=== PATIENT | female | born 1935 | race Caucasian/White ===

== ENCOUNTER 2017-01-18 18:36 | Inpatient (IN) | payer MEDICARE, BC ==
[2017-01-18] MEDS ORDERED: SODIUM CHLORIDE 0.9% 1,000 ML IV STA (18:38)
--- NOTE | 2017-01-18 18:42 | ED ---
SOB HPI - General Stated Complaint: TITA Time Seen by Provider: 01/18/17 18:36 Source: patient, family, EMS, RN notes reviewed Mode of arrival: EMS - History of Present Illness Initial Comments: This 81-year-old female history of COPD who still smokes who states she had the onset of shortness of breath about one to one half hours prior to admission. She denies any chest pain fevers chills sweats she states that normally she can handle this at home with her updrafts and nebulizer medicines. She states that was not the case today. She denies any fevers chills sweats chest pain or other symptoms. MD Complaint: shortness of breath - Related Data Home Medications Medication Instructions Recorded Confirmed Ascorbic Acid [Vitamin C] 500 mg PO DAILY 01/18/17 01/18/17 Cholecalciferol [Vitamin D3] 1,000 unit PO DAILY 01/18/17 01/18/17 Fluticasone/Salmeterol [Advair 1 inhalation PO RT-BID 01/18/17 01/18/17 500-50 Diskus] Ipratropium-Albuterol Nebulize 3 ml INHALATION RT-QID 01/18/17 01/18/17 [Duoneb 0.5 mg-3 mg/3 ml Soln] Metoprolol Succinate [Toprol XL] 50 mg PO DAILY 01/18/17 01/18/17 Multivitamins, Thera [Multivitamin 1 tab PO DAILY 01/18/17 01/18/17 (formulary)] Simvastatin [Zocor] 20 mg PO HS 01/18/17 01/18/17 Allergies Allergy/AdvReac Type Severity Reaction Status Date / Time No Known Allergies Allergy Verified 01/18/17 19:15 Review of Systems ROS Statement: Those systems with pertinent positive or pertinent negative responses have been documented in the HPI. ROS Other: All systems not noted in ROS Statement are negative. General Exam - General Exam Comments Initial Comments: This is a well-developed well-nourished awake alert oriented 3 female she does appear to be dyspneic. General appearance: alert, anxious Head exam: Present: atraumatic, normocephalic, normal inspection Eye exam: Present: normal appearance, PERRL, EOMI. Absent: scleral icterus, conjunctival injection, periorbital swelling ENT exam: Present: normal exam, mucous membranes moist Neck exam: Present: normal inspection. Absent: tenderness, meningismus, lymphadenopathy Respiratory exam: Present: accessory muscle use, decreased breath sounds, other (Patient does demonstrate kyphosis.). Absent: respiratory distress, wheezes, rales, rhonchi, stridor Cardiovascular Exam: Present: regular rate, normal rhythm, normal heart sounds. Absent: systolic murmur, diastolic murmur, rubs, gallop, clicks GI/Abdominal exam: Present: soft, normal bowel sounds. Absent: distended, tenderness, guarding, rebound, rigid Extremities exam: Present: normal inspection, full ROM, normal capillary refill , pedal edema (Trace edema). Absent: tenderness, joint swelling, calf tenderness Back exam: Present: normal inspection Neurological exam: Present: alert, oriented X3, CN II-XII intact Psychiatric exam: Present: normal affect, normal mood Skin exam: Present: warm, dry, intact, normal color. Absent: rash Course Vital Signs 01/18/17 01/18/17 01/18/17 18:46 18:58 20:03 Temperature 97.9 F 97.1 F L Pulse Rate 94 95 97 Respiratory 22 20 18 Rate Blood Pressure 160/73 156/99 O2 Sat by Pulse 96 96 94 L Oximetry Medical Decision Making - Medical Decision Making Patient states she is feeling better I did discuss findings with her and her there is evidence of elevation of troponin. I did recommend admission she is agreed. She will be admitted with evaluation of elevated troponin also COPD and pneumonia. - Lab Data Result diagrams: 01/18/17 19:00 01/18/17 19:00 Lab Results 01/18/17 01/18/17 01/18/17 Range/Units 19:00 19:00 19:00 WBC 9.9 (3.8-10.6) k/uL RBC 4.66 (3.80-5.40) m/uL Hgb 13.6 (11.4-16.0) gm/dL Hct 42.1 (34.0-46.0) % MCV 90.2 (80.0-100.0) fL MCH 29.1 (25.0-35.0) pg MCHC 32.2 (31.0-37.0) g/dL RDW 13.1 (11.5-15.5) % Plt Count 182 (150-450) k/uL Neutrophils % 72 % Lymphocytes % 20 % Monocytes % 6 % Eosinophils % 1 % Basophils % 0 % Neutrophils # 7.1 (1.3-7.7) k/uL Lymphocytes # 2.0 (1.0-4.8) k/uL Monocytes # 0.6 (0-1.0) k/uL Eosinophils # 0.1 (0-0.7) k/uL Basophils # 0.0 (0-0.2) k/uL PT (9.0-12.0) sec INR (<1.1) APTT (22.0-30.0) sec Sodium 139 (137-145) mmol/L Potassium 4.2 (3.5-5.1) mmol/L Chloride 103 (98-107) mmol/L Carbon Dioxide 27 (22-30) mmol/L Anion Gap 9 mmol/L BUN 17 (7-17) mg/dL Creatinine 0.60 (0.52-1.04) mg/dL Est GFR (MDRD) Af Amer >60 (>60 ml/min/1.73 sqM) Est GFR (MDRD) Non-Af >60 (>60 ml/min/1.73 sqM) Glucose 118 H (74-99) mg/dL Calcium 9.8 (8.4-10.2) mg/dL Magnesium 2.0 (1.6-2.3) mg/dL Total Bilirubin 0.6 (0.2-1.3) mg/dL AST 25 (14-36) U/L ALT 32 (9-52) U/L Alkaline Phosphatase 82 (38-126) U/L Total Creatine Kinase 96 (30-135) U/L CK-MB (CK-2) 4.9 H* (0.0-2.4) ng/mL CK-MB (CK-2) Rel Index 5.1 Troponin I 0.038 H* (0.000-0.034) ng/mL NT-Pro-B Natriuret Pep pg/mL Total Protein 6.9 (6.3-8.2) g/dL Albumin 4.0 (3.5-5.0) g/dL 01/18/17 01/18/17 Range/Units 19:00 19:00 WBC (3.8-10.6) k/uL RBC (3.80-5.40) m/uL Hgb (11.4-16.0) gm/dL Hct (34.0-46.0) % MCV (80.0-100.0) fL MCH (25.0-35.0) pg MCHC (31.0-37.0) g/dL RDW (11.5-15.5) % Plt Count (150-450) k/uL Neutrophils % % Lymphocytes % % Monocytes % % Eosinophils % % Basophils % % Neutrophils # (1.3-7.7) k/uL Lymphocytes # (1.0-4.8) k/uL Monocytes # (0-1.0) k/uL Eosinophils # (0-0.7) k/uL Basophils # (0-0.2) k/uL PT 10.9 (9.0-12.0) sec INR 1.1 (<1.1) APTT 23.4 (22.0-30.0) sec Sodium (137-145) mmol/L Potassium (3.5-5.1) mmol/L Chloride (98-107) mmol/L Carbon Dioxide (22-30) mmol/L Anion Gap mmol/L BUN (7-17) mg/dL Creatinine (0.52-1.04) mg/dL Est GFR (MDRD) Af Amer (>60 ml/min/1.73 sqM) Est GFR (MDRD) Non-Af (>60 ml/min/1.73 sqM) Glucose (74-99) mg/dL Calcium (8.4-10.2) mg/dL Magnesium (1.6-2.3) mg/dL Total Bilirubin (0.2-1.3) mg/dL AST (14-36) U/L ALT (9-52) U/L Alkaline Phosphatase (38-126) U/L Total Creatine Kinase (30-135) U/L CK-MB (CK-2) (0.0-2.4) ng/mL CK-MB (CK-2) Rel Index Troponin I (0.000-0.034) ng/mL NT-Pro-B Natriuret Pep 181 pg/mL Total Protein (6.3-8.2) g/dL Albumin (3.5-5.0) g/dL - EKG Data -: EKG Interpreted by Me EKG shows normal: sinus rhythm Rate: normal (Occasional PACs no acute ST-T wave changes) - Radiology Data Radiology results: report reviewed (I did review the imaging and report there is evidence of a subtle right middle lobe infiltrate), image reviewed Critical Care Time Critical Care Time: Yes Critical Care Time: 31 minutes of critical care time which includes monitoring initially EMS run. Discussed with paramedics upon arrival. Evaluation patient with respect to history physical labs x-rays. Reevaluation the patient response to therapy. Discussion with the patient and her regarding the findings. Discussion with the admitting physician. Admission orders and documentation of the above. Disposition Clinical Impression: Pneumonia, Elevated troponin, Acute exacerbation of chronic obstructive airways disease, Adult respiratory distress syndrome Disposition: ADMITTED IP TO THIS HOSP Condition: Stable
[2017-01-18] MEDS ORDERED: MAGNESIUM SULFATE-D5W PMX 1 GM in DEXTROSE/WATER 1 100ML.BAG IVPB STA (18:43)
[2017-01-18 19:12] LABS: Basophils % (A) 0 %; CH 29.2; CHCM 32.6; Eosinophils # (A) 0.1 k/uL (0-0.7); Eosinophils % (A) 1 %; HCT 42.1 % (34.0-46.0); HDW 2.52; HGB 13.6 gm/dL (11.4-16.0); Luc # (Auto) 0.15; Luc % (Auto) 2; Lymphocytes % (A) 20 %; MCH 29.1 pg (25.0-35.0); MCHC 32.2 g/dL (31.0-37.0); MCV 90.2 fL (80.0-100.0); Mean Platelet Volume 6.8; Monocytes # (A) 0.6 k/uL (0-1.0); Monocytes % (A) 6 %; Neutrophils # (A) 7.1 k/uL (1.3-7.7); Neutrophils % (A) 72 %; RBC 4.66 m/uL (3.80-5.40); RDW 13.1 % (11.5-15.5); WBC 9.9 k/uL (3.8-10.6); WBC (Perox) 9.97
--- NOTE | 2017-01-18 19:21 | XR ---
EXAMINATION TYPE: XR chest 2V DATE OF EXAM: 01/18/2017 7:16 PM COMPARISON: NONE INDICATION: Difficulty breathing, COPD TECHNIQUE: Single frontal view of the chest is obtained. FINDINGS: The heart size is normal. The pulmonary vasculature is normal. Bilateral shoulder prostheses are present. There is hyperinflation flattening the diaphragms compatib le with COPD. Some mild right middle lobe infiltrate may be present. Correlate for atelectasis or ear ly pneumonia. IMPRESSION: 1. Subtle right middle lobe infiltrate silhouetting the right heart border and evident on the lateral projection. Correlate for atelectasis or early pneumonia. 2. COPD
[2017-01-18 19:25] LABS: ALT 32 U/L (9-52); AST 25 U/L (14-36); Alkaline Phosphatase 82 U/L (38-126); Anion Gap 9 mmol/L; Blood Urea Nitrogen 17 mg/dL (7-17); Calcium 9.8 mg/dL (8.4-10.2); Carbon Dioxide 27 mmol/L (22-30); Chloride 103 mmol/L (98-107); Glucose 118 mg/dL (74-99); Non-African American GFR(MDRD) >60 (>60 ml/min/1.73 sqM); Partial Thromboplastin Time 23.4 sec (22.0-30.0); Potassium 4.2 mmol/L (3.5-5.1); Sodium 139 mmol/L (137-145); Total Bilirubin 0.6 mg/dL (0.2-1.3); Total Protein 6.9 g/dL (6.3-8.2)
[2017-01-18 19:29] LABS: INR 1.1 (<1.1); Prothrombin Time 10.9 sec (9.0-12.0)
[2017-01-18 19:59] LABS: Creatine Kinase MB 4.9 ng/mL (0.0-2.4); Troponin I 0.038 ng/mL (0.000-0.034)
[2017-01-18] MEDS ORDERED: PNEUMONIA PROTOCOL UTILIZED 1 EACH MISC PO PRN (20:48)
[2017-01-18] MEDS ORDERED: LEVOFLOXACIN 750MG-D5W PMX 750 MG in DEXTROSE/WATER 1 150ML.BAG IVPB STA (20:48)
[2017-01-18] MEDS ORDERED: HEPARIN SODIUM,PORCINE 5,000 UNIT/ML 1 ML VIAL IV ONE (20:52)
[2017-01-18] MEDS ORDERED: NITROGLYCERIN SL TABS 0.4 MG TAB SUBLINGUAL PRN (20:52)
[2017-01-18] MEDS ORDERED: NICOTINE 14MG/24HR PATCH TRANSDERM STA (20:53)
[2017-01-18] MEDS: HEPARIN SODIUM,PORCINE/D5W PMX 25,000 UNIT in DEXTROSE/WATER 1 500ML.BAG IV SCH (21:37)
[2017-01-18] MEDS: ATORVASTATIN 10 MG TAB PO SCH (22:41)
[2017-01-18 22:59] VITALS: BMI 26.6
[2017-01-18] MEDS: methylPREDNISolone SOD SUCCI 125 MG/2 ML VIAL IV SCH (23:08)
[2017-01-18] MEDS: SODIUM CHLORIDE 0.9% 1,000 ML IV SCH (23:09)
[2017-01-18] MEDS: PIPERACILLIN-TAZOBACTAM 3.375 GM in DEXTROSE/WATER 1 50ML.BAG IVPB SCH (23:09)
[2017-01-18] MEDS: IPRATROPIUM-ALBUTEROL 3 ML NEB INHALATION SCH (23:46)
[2017-01-19 01:49] LABS: Creatine Kinase MB 5.2 ng/mL (0.0-2.4); Troponin I 0.04 ng/mL (0.000-0.034)
[2017-01-19] MEDS: IPRATROPIUM-ALBUTEROL 3 ML NEB INHALATION SCH ×5 (03:44→20:37)
[2017-01-19 06:48] LABS: Glucose,Whole Blood 157 mg/dL (75-99)
[2017-01-19] MEDS: methylPREDNISolone SOD SUCCI 125 MG/2 ML VIAL IV SCH ×2 (06:48→14:47)
[2017-01-19 07:36] LABS: Cholesterol 169 mg/dL (<200); HDL Cholesterol 78 mg/dL (40-60); Triglycerides 56 mg/dL (<150)
--- NOTE | 2017-01-19 07:43 | XR ---
EXAMINATION TYPE: XR chest 2V DATE OF EXAM: 01/19/2017 6:36 AM COMPARISON: 01/18/2017 HISTORY: Pneumonia TECHNIQUE: Frontal and lateral views of the chest are obtained. FINDINGS: The subtle right middle lobe opacity, previously seen on the prior exam, is less conspicuo us on today's examination and is improving. There is new blunting of the left costophrenic angle. Pul monary hyperinflation is unchanged. Cardiomediastinal silhouette is within normal limits in size. Ronnie ateral shoulder prostheses are unchanged. IMPRESSION: Improving right middle lobe infiltrate and new trace left pleural effusion.
[2017-01-19] MEDS: ASCORBIC ACID 500 MG TAB PO SCH (08:11)
[2017-01-19] MEDS: ASPIRIN 325 MG TAB PO SCH (08:11)
[2017-01-19] MEDS: INSULIN LISPRO (humaLOG) 300 UNIT/3 ML VIAL SQ SCH ×4 (08:11→21:40)
[2017-01-19] MEDS: PIPERACILLIN-TAZOBACTAM 3.375 GM in DEXTROSE/WATER 1 50ML.BAG IVPB SCH ×2 (08:11→14:48)
[2017-01-19] MEDS: CHOLECALCIFEROL 1,000 UNIT TAB PO SCH (08:11)
[2017-01-19] MEDS: MULTIVITAMINS, THERA 1 EACH TAB PO SCH (08:11)
[2017-01-19 08:39] LABS: Troponin I 0.029 ng/mL (0.000-0.034)
[2017-01-19 08:43] LABS: Creatine Kinase MB 5.8 ng/mL (0.0-2.4)
[2017-01-19] MEDS ORDERED: METOPROLOL SUCCINATE (ER) 50 MG TAB.ER.24H PO SCH (09:00)
[2017-01-19 09:59] VITALS: RESP 20
--- NOTE | 2017-01-19 10:47 | P.CRDCN ---
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 She was in her usual state of health until yesterday when she was at home with her who is going to have surgery in the next few days, and suddenly she developed shortness of breath associated with cough. Also the shortness of breath was associated with sweating. No chest pain or discomfort. No fever or chills. No dizziness or lightheadedness and no syncope. The patient was brought to the emergency room. The EKG showed sinus rhythm with sinus tachycardia. The cardiac enzymes were checked and came in to be slightly abnormal with abnormal CK-MB and abnormal troponin but the abnormalities are mild. The chest x-ray showed findings consistent with COPD with possible pneumonia. The BNP came in to be within normal limits. The patient was started on antibiotic for possible pneumonia. Also she is on heparin. I am concerned about PE in this 81-year-old female patient with sinus tachycardia and mildly abnormal cardiac enzymes. I will obtain a d-dimer to rule out a PE. I will continue the heparin IV for now. I'll start the patient on small dose of metoprolol. Also would obtain an echocardiogram was Doppler. Past Medical History Past Medical History: COPD, Hyperlipidemia, Hypertension Additional Past Medical History / Comment(s): Patient says she has had trouble with her left leg swelling and redness near her ankles since her knee surgeries. History of Any Multi-Drug Resistant Organisms: None Reported Past Surgical History: Cholecystectomy, Orthopedic Surgery, Tonsillectomy, Tubal Ligation Additional Past Surgical History / Comment(s): hip, knee, and bilateral shoulder surgery Additional Past Anesthesia/Blood Transfusion Reaction / Comment(s): Patient reports she has had a hard time waking up from anesthesia and feeling sick to her stomach after. Past Psychological History: No Psychological Hx Reported Smoking Status: Current every day smoker Past Alcohol Use History: Daily Additional Past Alcohol Use History / Comment(s): Patient reports having a vodka tonic every night. Says she never has more than one drink/day. Past Drug Use History: None Reported - Past Family History Sister(s) Additional Family Medical History / Comment(s): Brain aneurysm Father Family Medical History: Cancer Additional Family Medical History / Comment(s): Colon CA Medications and Allergies Home Medications Medication Instructions Recorded Confirmed Type Ascorbic Acid [Vitamin C] 500 mg PO DAILY 01/18/17 01/18/17 History Cholecalciferol [Vitamin D3] 1,000 unit PO DAILY 01/18/17 01/18/17 History Fluticasone/Salmeterol [Advair 1 inhalation PO RT-BID 01/18/17 01/18/17 History 500-50 Diskus] Ipratropium-Albuterol Nebulize 3 ml INHALATION RT-QID 01/18/17 01/18/17 History [Duoneb 0.5 mg-3 mg/3 ml Soln] Metoprolol Succinate [Toprol XL] 50 mg PO DAILY 01/18/17 01/18/17 History Multivitamins, Thera [Multivitamin 1 tab PO DAILY 01/18/17 01/18/17 History (formulary)] Simvastatin [Zocor] 20 mg PO HS 01/18/17 01/18/17 History Allergies Allergy/AdvReac Type Severity Reaction Status Date / Time No Known Allergies Allergy Verified 01/18/17 19:15 Physical Exam Vitals: Vital Signs Temp Pulse Pulse Resp BP BP Pulse Ox 01/19/17 08:03 93 01/19/17 08:00 98.8 F 95 20 135/79 96 01/19/17 07:53 93 16 95 01/19/17 04:00 97.1 F L 89 18 144/84 96 01/18/17 23:59 97 01/18/17 23:48 97 01/18/17 23:10 96.9 F L 95 20 136/80 94 L 01/18/17 22:42 97.0 F L 94 18 143/74 95 01/18/17 21:27 97.9 F 95 18 140/71 95 Intake and Output 01/18/17 01/19/17 01/19/17 22:59 06:59 14:59 Intake Total 1035.34 Output Total 600 500 Balance -600 535.34 Intake: Intake, IV Titration 560.34 Amount Heparin Sodium,Porcine/ 180.34 D5w Pmx 25,000 unit In Dextrose/Water 1 500ml. bag @ 12 UNITS/KG/HR 15. 24 mls/hr IV .Q24H TERRELL Rx #:[id number] Piperacillin-Tazobactam 3 50 .375 gm In Dextrose/Water 1 50ml.bag @ 12.5 mls/hr IVPB Q8HR TERRE[facility] Rx#: [id number] Sodium Chloride 0.9% 1, 80 000 ml @ 20 mls/hr IV . Q24H TERRELL Rx#:[id number] Sodium Chloride 0.9% 1, 250 000 ml @ 75 mls/hr IV . [id number] STA Rx#:[id number] Oral 475 Output: Urine 600 500 Other: Voiding Method Bedside Commode Bedside Commode # Voids 1 Weight 64.1 kg 77.3 kg - Constitutional General appearance: no acute distress - Respiratory Respiratory: bilateral: CTA - Cardiovascular Rhythm: regular Heart sounds: normal: S1, S2 Results 01/18/17 19:00 01/18/17 19:00 Cardiac Enzymes 01/19/17 01/19/17 Range/Units 00:57 06:45 CK-MB (CK-2) 5.2 H* 5.8 H* (0.0-2.4) ng/mL Troponin I 0.040 H* 0.029 (0.000-0.034) ng/mL Coagulation 01/19/17 01/19/17 Range/Units 01:25 06:45 APTT 51.0 H 37.0 H (22.0-30.0) sec Lipids 01/19/17 Range/Units 06:45 Triglycerides 56 (<150) mg/dL Cholesterol 169 (<200) mg/dL HDL Cholesterol 78 H (40-60) mg/dL Current Medications Generic Name Dose Route Start Last Admin Trade Name Freq PRN Reason Stop Dose Admin Albuterol/Ipratropium 3 ml 01/19/17 00:00 01/19/17 07:52 Duoneb 0.5 Mg-3 Mg/3 Ml Soln INHALATION 3 ml RT-Q4H TERRELL Administration Ascorbic Acid 500 mg 01/19/17 09:00 01/19/17 08:11 Vitamin C PO 500 mg DAILY TERRELL Administration Aspirin 325 mg 01/19/17 09:00 01/19/17 08:11 Aspirin PO 325 mg DAILY TERRELL Administration Atorvastatin Calcium 10 mg 01/18/17 21:00 01/18/17 22:41 Lipitor PO 10 mg HS TERRELL Administration Cholecalciferol 1,000 unit 01/19/17 09:00 01/19/17 08:11 Vitamin D3 PO 1,000 unit DAILY TERRELL Administration Piperacillin/Tazobactam/ 50 mls @ 12.5 mls/hr 01/19/17 00:00 01/19/17 08:11 Dextrose 3.375 gm/ IV Solution IVPB 01/29/17 00:01 12.5 mls/hr Q8HR TERRELL Administration Sodium Chloride 1,000 mls @ 20 mls/hr 01/18/17 21:00 01/18/17 23:09 Saline 0.9% IV 20 mls/hr .Q24H TERRELL Administration Heparin Sodium/Dextrose 25,000 500 mls @ 15.24 mls/hr 01/18/17 21:00 09:27 unit/ IV Solution IV 14.36 units/kg/hr .Q24H TERRELL 18.24 mls/hr Protocol Titration 12 UNITS/KG/HR Insulin Human Lispro 0 unit 01/19/17 07:30 01/19/17 08:11 Humalog SQ 3 unit ACHS TERRELL Administration Protocol Methylprednisolone Sodium Succinate 60 mg 01/19/17 00:00 01/19/17 06:48 Solu-Medrol IV 60 mg Q6HR TERRELL Administration Metoprolol Succinate 50 mg 01/19/17 09:00 01/19/17 08:11 Toprol Xl PO 50 mg DAILY TERRELL Administration Metoprolol Tartrate 12.5 mg 01/19/17 21:00 Lopressor PO BID TERRELL Miscellaneous Information 1 each 01/18/17 20:48 Pneumonia Protocol Utilized PO ONCE PRN Per Protocol Multivitamins 1 each 01/19/17 09:00 01/19/17 08:11 Theragran PO 1 each DAILY TERRELL Administration Nitroglycerin 0.4 mg 01/18/17 20:52 Nitrostat SUBLINGUAL Q5M PRN Chest Pain Intake and Output 01/18/17 01/19/17 01/19/17 22:59 06:59 14:59 Intake Total 1035.34 Output Total 600 500 Balance -600 535.34 Intake: Intake, IV Titration 560.34 Amount Heparin Sodium,Porcine/ 180.34 D5w Pmx 25,000 unit In Dextrose/Water 1 500ml. bag @ 12 UNITS/KG/HR 15. 24 mls/hr IV .Q24H TERRE[facility] Rx #:[id number] Piperacillin-Tazobactam 3 50 .375 gm In Dextrose/Water 1 50ml.bag @ 12.5 mls/hr IVPB Q8HR TERRE[facility] Rx#: [id number] Sodium Chloride 0.9% 1, 80 000 ml @ 20 mls/hr IV . Q24H TERRELL Rx#:[id number] Sodium Chloride 0.9% 1, 250 000 ml @ 75 mls/hr IV . [id number] STA Rx#:[id number] Oral 475 Output: Urine 600 500 Other: Voiding Method Bedside Commode Bedside Commode # Voids 1 Weight 64.1 kg 77.3 kg Assessment and Plan Plan: Assessment #1 sudden onset of shortness of breath #2 mildly abnormal cardiac enzymes #3 sinus tachycardia #4 known COPD Plan #1 PE to be ruled out. I will obtain a d-dimer #2 continue the heparin for additional 24 hours #3 start the patient on metoprolol #4 continue the aspirin and statin #5 echocardiogram was Doppler
[2017-01-19 12:28] LABS: Glucose,Whole Blood 111 mg/dL (75-99)
--- NOTE | 2017-01-19 16:08 | HP ---
DATE OF ADMISSION: 01/18/2017 PRESENTING COMPLAINT: Short of breath. HISTORY OF PRESENTING COMPLAINT: A very pleasant 81-year-old patient of Dr. Weiner whose chronic stable medical conditions include hypertension, hyperlipidemia, uses a walker, osteoporosis, osteoarthritis, peripheral neuropathy. Patient is long-standing smoker. Presents with worsening short of breath, was gasping for air, cough. No phlegm, no fever. Appetite is fair. Admitted with severe chronic obstructive pulmonary disease exacerbation. After getting breathing treatments, feeling slightly better. Patient is really concerned about going home as the is getting surgery done on Friday. Sitting out of bed. REVIEW OF SYSTEMS: CONSTITUTIONAL: Weak and tired. HEENT: None. RESPIRATORY: As above. CARDIOVASCULAR: None. GASTROINTESTINAL: None. GENITOURINARY: None. MUSCULOSKELETAL: Aches and pains in different joints. DERMATOLOGICAL: None. HEMATOLOGICAL: None. LYMPHATIC: None. PSYCHIATRY: None. NEUROLOGICAL: Numbness and tingling in both feet. Past history of COPD, hyperlipidemia, hypertension, osteoporosis, osteoarthritis, peripheral neuropathy, urinary incontinence. PAST SURGICAL HISTORY: Cholecystectomy, orthopedic surgery, tonsillectomy, tubal ligation, hip, knee and bilateral shoulder replaced. SOCIAL HISTORY: Patient smokes about a pack a day, was doing 2 packs a day for close to 60 years. Has a vodka and tonic every night. Family history of brain aneurysm and cancer. HOME MEDICATIONS: 1. Zocor 20 mg at bedtime. 2. Multivitamin 1 tablet p.o. daily. 3. DuoNeb q.i.d. 4. Vitamin D3, 2000 units p.o. daily. 5. Vitamin C 500 mg p.o. daily. 6. Toprol-XL 50 mg p.o. daily. 7. Advair 500/50, 1 puff b.i.d. ALLERGIES: None. On examination: Temperature 97.1, pulse 97, respirations 18, blood pressure is 157/99, pulse ox 94% on 4 liters. GENERAL APPEARANCE: Well built, BMI of 32.2. Sitting up, short of breath. EYES: Pupils equal. Conjunctivae normal. HEENT: Oral cavity normal. NECK: JVD not raised. Mass not palpable. RESPIRATORY: Effort increased. LUNGS: Diminished breath sounds. Prolonged expiration and wheezing. CARDIOVASCULAR: First and second sounds normal. No edema. ABDOMEN: Soft, nontender. Liver and spleen not palpable. LYMPHATIC: No lymph nodes palpable in the neck or axillae. PSYCHIATRY: Alert and oriented x3. Mood and affect normal. NEUROLOGICAL: Pupils equal. Cranial nerves grossly intact. Power and sensation grossly intact. INVESTIGATIONS: White count 9.9,, hemoglobin 13.6, potassium 4.2. BUN and creatinine are normal. Troponin 0.038, 0.040, 0.029. LDL is 80. Chest x-ray, questionable right middle lobe infiltrate. ASSESSMENT: 1. Possible right middle lobe pneumonia community-acquired, suspect gram-negative organism. 2. Acute severe chronic obstructive pulmonary disease exacerbation. The patient is a current smoker. 3. Hyperlipidemia. 4. Essential hypertension. 5. Chronic osteoporosis. 6. Primary osteoarthritis of multiple joints bilateral including the hands. 7. Peripheral neuropathy, idiopathic. 8. Chronic urinary stress incontinence. PLAN: Patient advised against smoking, given a nicotine patch. Subcu heparin and DVT prophylaxis. The patient can do probably short course of antibiotics for pneumonia. Given the troponin leak, Cardiology consultation was done. Patient also given some IV Solu-Medrol. Overall prognosis is guarded. Care was discussed with the patient.
[2017-01-19] MEDS ORDERED: RX INFO: IV CONTRAST WAS GIVEN 1 EACH MISC MISCELLANE PRN (16:44)
[2017-01-19 16:58] LABS: Glucose,Whole Blood 133 mg/dL (75-99)
--- NOTE | 2017-01-19 19:59 | CT ---
EXAMINATION TYPE: CT angio chest DATE OF EXAM: 01/19/2017 7:41 PM COMPARISON: Chest x-ray same date HISTORY: Episode of Shortness of breath CT DLP: 481.4 mGycm Automated exposure control for dose reduction was used. CONTRAST: CTA scan of the thorax is performed with IV Contrast, patient injected with 100 mL of Omnipaque 350, pulmonary embolism protocol. MIP images are created and reviewed. 3D reconstructed images are creat ed on an independent workstation and reviewed. FINDINGS: LUNGS: The lungs show centrilobular emphysematous changes, there is no concerning parenchymal mass or nodule identified. Some thickened parenchymal bands are present. Some right middle lobe atelectasis is present. There is no pleural effusion or pneumothorax seen. The tracheobronchial tree is patent. AORTA: No evident aneurysm or dissection. Pulmonary artery is dilated, consider underlying pulmonary artery hypertension. MEDIASTINUM: There is satisfactory enhancement of the pulmonary artery and its branches, there is no CT evidence for pulmonary embolism. There are no greater than 1 cm hilar or mediastinal lymph nodes. There are coronary artery calcifications. No pericardial effusion is seen. OTHER: Compression deformities at the upper thoracic spine results in kyphosis. IMPRESSION: NO EVIDENT PULMONARY EMBOLUS AND. CARDIOMEGALY, CORONARY ARTERY DISEASE, CORRELATE FOR PULMONARY ABEBA RY HYPERTENSION. RIGHT MIDDLE LOBE ATELECTASIS. ADDITIONAL FINDINGS ABOVE.
[2017-01-19] MEDS: BUDESONIDE 1 MG/2 ML NEBU INHALATION SCH (20:37)
[2017-01-19] MEDS ORDERED: IPRATROPIUM-ALBUTEROL 3 ML NEB INHALATION PRN (21:09)
[2017-01-19] MEDS: ATORVASTATIN 10 MG TAB PO SCH (21:24)
[2017-01-19] MEDS: METOPROLOL TARTRATE 12.5 MG TAB PO SCH (21:25)
[2017-01-19] MEDS: CEFUROXIME 250 MG TAB PO SCH (21:25)
[2017-01-19 21:42] LABS: Glucose,Whole Blood 149 mg/dL (75-99)
[2017-01-20] MEDS: methylPREDNISolone SOD SUCCI 40 MG/ML 1 ML VIAL IV SCH ×2 (00:20→08:27)
[2017-01-20] MEDS: HEPARIN SODIUM,PORCINE/D5W PMX 25,000 UNIT in DEXTROSE/WATER 1 500ML.BAG IV SCH (05:45)
[2017-01-20] MEDS: SODIUM CHLORIDE 0.9% 1,000 ML IV SCH (05:46)
[2017-01-20 06:02] LABS: Glucose,Whole Blood 145 mg/dL (75-99)
[2017-01-20] MEDS: INSULIN LISPRO (humaLOG) 300 UNIT/3 ML VIAL SQ SCH ×2 (06:36→12:26)
[2017-01-20] MEDS: CHOLECALCIFEROL 1,000 UNIT TAB PO SCH (08:26)
[2017-01-20] MEDS: MULTIVITAMINS, THERA 1 EACH TAB PO SCH (08:26)
[2017-01-20] MEDS: METOPROLOL TARTRATE 12.5 MG TAB PO SCH (08:26)
[2017-01-20] MEDS: ASPIRIN 325 MG TAB PO SCH (08:27)
[2017-01-20] MEDS: CEFUROXIME 250 MG TAB PO SCH (08:27)
[2017-01-20] MEDS: ASCORBIC ACID 500 MG TAB PO SCH (08:27)
[2017-01-20] MEDS: BUDESONIDE 1 MG/2 ML NEBU INHALATION SCH (11:06)
[2017-01-20] MEDS: IPRATROPIUM-ALBUTEROL 3 ML NEB INHALATION SCH ×2 (11:08→11:09)
[2017-01-20 11:46] VITALS: BP 137/79; PULSE 74; TEMP 96.9
--- NOTE | 2017-01-20 11:51 | PN ---
DATE OF SERVICE: 01/20/2017 PRESENTING COMPLAINT: Shortness of breath. This is an 81-year-old patient who presented to the emergency department on 01/18/17 with increasing shortness of breath. Today patient is awake, sitting up in bed, wearing oxygen. Cough noted. No sputum production. Review of systems done for constitutional, cardiovascular, gastrointestinal, pulmonary with relevant findings as above. CURRENT MEDICATIONS: DuoNeb, ascorbic acid, aspirin, Lipitor, Pulmicort, Ceftin, vitamin D3, heparin sodium IV solution, Humalog, Solu-Medrol, metoprolol. PHYSICAL EXAM: VITAL SIGNS: Temperature 97.2, pulse 78, respiratory rate 20, blood pressure 128/71, oxygen saturation 95% on 2 L nasal cannula. GENERAL APPEARANCE: Patient sitting up in bed inquiring about returning home today. Patient's is having a procedure on Friday morning and patient is anxious to go home. Patient is noted to have a cough with no sputum production. EYES: Pupils equal. Conjunctivae normal. NECK: JVD not raised. Mass not palpable. LUNGS: Breath sounds diminished bilaterally, minimal expiratory wheezing noted. Respiratory effort normal, unlabored. CARDIOVASCULAR: S1, S2 normal. No edema noted. ABDOMEN: Soft, nontender. Liver and spleen not palpable. PSYCHIATRIC: Alert and oriented x3. Mood and affect are normal. INVESTIGATIONS: 01/19/2017, CTA completed; impression, no evident pulmonary embolus and cardiomegaly, coronary artery disease, correlate for pulmonary artery hypertension, right middle lobe atelectasis. Blood glucose 145. ASSESSMENT: 1. Possible right middle lobe pneumonia community acquired, suspect gram-negative organism. 2. Acute severe chronic obstructive pulmonary disease exacerbation. The patient is a current smoker. 3. Hyperlipidemia. 4. Essential hypertension. 5. Chronic osteoporosis. 6. Primary osteoarthritis of multiple joints, bilateral including the hands. 7. Peripheral neuropathy, idiopathic. 8. Chronic urinary stress incontinence. PLAN: Patient advised against smoking. Nicotine patch provided. Patient is on heparin drip currently, which covers DVT prophylaxis. Heparin drip initiated with concerns for pulmonary embolus, those have been ruled out by CTA. Patient can do a short course of antibiotics for pneumonia. IV Solu-Medrol to continue. Care was discussed with the patient. Patient was seen and examined by nurse practitioner, Lisha Bowers, and all elements of the case discussed with attending, Dr. Osorio.
[2017-01-20] MEDS ORDERED: ASPIRIN 81 MG CHEW PO SCH (12:00)
[2017-01-20 12:02] LABS: Glucose,Whole Blood 128 mg/dL (75-99)
--- NOTE | 2017-01-20 12:41 | P.PN ---
Subjective This is a pleasant 81-year-old female patient who does not see any erisa attorney with a past medical history significant for COPD, hypertension, and dyslipidemia, presented to the emergency room complaining of shortness of breath.She was in her usual state of health until yesterday when she was at home with her who is going to have surgery in the next few days, and suddenly she developed shortness of breath associated with cough. Also the shortness of breath was associated with sweating. No chest pain or discomfort. No fever or chills. No dizziness or lightheadedness and no syncope.The patient was brought to the emergency room. The EKG showed sinus rhythm with sinus tachycardia. The cardiac enzymes were checked and came in to be slightly abnormal with abnormal CK-MB and abnormal troponin but the abnormalities are mild and not suggestive of acute coronary syndrome.. The chest x-ray showed findings consistent with COPD with possible pneumonia. The BNP came in to be within normal limits.The patient was started on antibiotic for possible pneumonia. TTA of the chest was negative for pulmonary embolism. Echocardiogram with Doppler study remains pending. is feeling well overall, he presented to be discharged home today. Objective - Vital Signs Vital signs: Vital Signs Temp 96.9 F L 01/20/17 11:44 Pulse 74 01/20/17 11:44 Resp 20 01/20/17 11:44 BP 137/79 01/20/17 11:44 Pulse Ox 95 01/20/17 11:44 Intake & Output 01/19/17 01/20/17 01/20/17 18:59 06:59 18:59 Intake Total 1845.34 579.011 180 Output Total 500 500 Balance 1345.34 79.011 180 Weight 61.4 kg Intake: Intake, IV Titration 730.34 579.011 Amount Heparin Sodium,Porcine/ 180.34 339.011 D5w Pmx 25,000 unit In Dextrose/Water 1 500ml. bag @ 12 UNITS/KG/HR 15. 24 mls/hr IV .Q24H [facility] Rx #:[id number] Piperacillin-Tazobactam 3 100 .375 gm In Dextrose/Water 1 50ml.bag @ 12.5 mls/hr IVPB Q8HR [facility] Rx#: [id number] Sodium Chloride 0.9% 1, 200 240 000 ml @ 20 mls/hr IV . Q24H [facility] Rx#:[id number] Sodium Chloride 0.9% 1, 250 000 ml @ 75 mls/hr IV . [id number] STA Rx#:[id number] Oral 1115 180 Output: Urine 500 500 Other: Voiding Method Bedside Commode Bedside Commode # Voids 1 - Exam PHYSICAL EXAMINATION: HEENT: [Head is atraumatic, normocephalic. Pupils equal, round. Neck is supple. There is no elevated jugular venous pressure.] HEART EXAMINATION: [Heart S1, S2 normal. No murmur or gallop heard.] CHEST EXAMINATION:[ Lungs are clear to auscultation and precussion. No chest wall tenderness is noted on palpation or with deep breathing.] ABDOMEN: [ Soft, nontender. Bowel sounds are heard. No organomegaly noted]. EXTREMITIES:[ 2+ peripheral pulses with no evidence of peripheral edema and no calf tenderness noted]. NEUROLOGIC [patient is awake, alert and oriented -3.] . - Labs CBC & Chem 7: 01/18/17 19:00 01/18/17 19:00 Labs: Abnormal Lab Results - Last 24 Hours (Table) 01/19/17 01/19/17 01/19/17 Range/Units 16:28 21:08 21:29 APTT 80.9 H (22.0-30.0) sec POC Glucose (mg/dL) 133 H 149 H (75-99) mg/dL 01/20/17 01/20/17 01/20/17 Range/Units 05:31 06:01 11:59 APTT 42.0 H (22.0-30.0) sec POC Glucose (mg/dL) 145 H 128 H (75-99) mg/dL Microbiology - Last 24 Hours (Table) 01/19/17 00:57 Blood Culture - Preliminary Blood No Growth after 24 hours Assessment and Plan (1) Sinus tachycardia Status: Acute (2) Acute exacerbation of chronic obstructive airways disease Status: Acute (3) Elevated troponin Status: Acute (4) Pneumonia Status: Acute Plan: From cardiology's perspective, we'll review the patient's echocardiogram with Doppler study, if normal patient should be able to be discharged home today. We 'll make a follow-up appointment in the office post discharge. DNP note has been reviewed, I agree with a documented findings and plan of care. Patient was seen and examined.
--- NOTE | 2017-01-21 07:58 | DS ---
DATE OF ADMISSION: 01/18/2017 DATE OF DISCHARGE: 01/20/2017 FINAL DIAGNOSIS(ES): 1. Right middle lobe pneumonia, community acquired suspect gram-negative organism. 2. Acute severe chronic obstructive pulmonary disease exacerbation in a current smoker, present on admission. 3. Hyperlipidemia. 4. Essential hypertension. 5. Chronic osteoporosis. 6. Primary osteoarthritis of multiple joints, bilateral, including the hands. 7. Peripheral neuropathy, idiopathic. 8. Chronic urinary stress incontinence. HOSPITAL COURSE: This patient presented with pneumonia, and COPD exacerbation in a smoker was counseled against the same at the time doing better. On exam, lungs decreased breath sounds. CARDIOVASCULAR: First and second sounds normal. The patient doing much better at the time of discharge. Patient has a small troponin leak, seen by cardiology; Dr. Navas, not for any intervention at the present time. Okayed to be discharged. Patient did have a 2-D echocardiogram performed results not available. Patient counseled extensively about cessation of smoking. Discharge planning more than 35 minutes. DISCHARGE MEDICATIONS: 1. Vitamin C 500 mg p.o. daily. 2. Vitamin D3 1000 units p.o. daily. 3. Advair 500/50 1 puff b.i.d. 4. DuoNeb q.i.d. 5. Multivitamin 1 tablet p.o. daily. 6. Zocor 20 mg p.o. q.h.s. 7. Aspirin 81 mg p.o. daily. 8. Ceftin 5 mg milligram p.o. b.i.d. 6 tablets. 9. Lopressor 12.5 p.o. b.i.d. 10. Prednisone taper. Follow up with Dr. Weiner in 3 days. Follow up with Dr. Navas cardiology. Discharge planning more than 35 minutes.
--- NOTE | 2017-01-22 17:03 | ECHOF ---
Referral Reason:nstemi MEASUREMENTS -------- HEIGHT: 154.9 cm WEIGHT: 61.2 kg BP: 134/75 IVSd: 1.3 cm (0.6 - 1.1) LVIDd: 5.1 cm (3.9 - 5.3) LVPWd: 1.3 cm (0.6 - 1.1) IVSs: 1.8 cm LVIDs: 5.3 cm LVPWs: 1.6 cm LAESV Index (A-L): 26.21 ml/m Ao Diam: 3.7 cm (2.0 - 3.7) AV Cusp: 2.0 cm (1.5 - 2.6) LA Diam: 2.8 cm (2.7 - 3.8) MV E Bonilla: 0.79 m/s MV DecT: 181 ms MV A Bonilla: 0.92 m/s MV E/A Ratio: 0.86 AR PHT: 618 ms RAP: 5.00 mmHg RVSP: 15.82 mmHg FINDINGS -------- Sinus rhythm. This was a technically adequate study. There is mild concentric left ventricular hypertrophy. Overall left ventricular systolic function is normal with, an EF between 55 - 60 %. The right ventricle is normal in size and function. Normal LA size by volume 22+/-6 ml/m2. The right atrium is normal in size. Aortic valve is trileaflet and is mildly thickened. There is mild aortic regurgitation. There is no evidence of aortic stenosis. The mitral valve leaflets are mildly thickened. Mild mitral annular calcification present. There is trace mitral regurgitation. Trace tricuspid regurgitation present. There is no evidence of pulmonary hypertension. The right ventricular systolic pressure, as measured by Doppler, is 15.82mmHg. Trace/mild (physiologic) pulmonic regurgitation. The aortic root size is normal. Echo free space may represent effusion or a pericardial fat pad. CONCLUSIONS -------- 1. Sinus rhythm. 2. There is no evidence of pulmonary hypertension. 3. The right ventricular systolic pressure, as measured by Doppler, is 15.82mmHg. 4. Trace/mild (physiologic) pulmonic regurgitation. 5. The aortic root size is normal. 6. Echo free space may represent effusion or a pericardial fat pad. 7. There is mild concentric left ventricular hypertrophy. 8. Overall left ventricular systolic function is normal with, an EF between 55 - 60 %. 9. Aortic valve is trileaflet and is mildly thickened. 10. There is mild aortic regurgitation. 11. The mitral valve leaflets are mildly thickened. 12. Mild mitral annular calcification present. 13. There is trace mitral regurgitation. 14. Trace tricuspid regurgitation present. RN PROVIDER RELATIONS: Deepti Mitchell RDCS
== END 2017-01-20 14:55 | disposition home or self-care (01) | DRG 190 ==
LOC: EC 18:36 → 6SEL 20:48
PROVIDERS: ADMIT Hospitalist; ATTEND Hospitalist
DX: J44.0 Chronic obstructive pulmonary disease with (acute) lower respiratory infection (principal); J15.6 Pneumonia due to other Gram-negative bacteria; J44.1 Chronic obstructive pulmonary disease with (acute) exacerbation; E78.5 Hyperlipidemia, unspecified; I10 Essential (primary) hypertension; M81.0 Age-related osteoporosis without current pathological fracture; M19.91 Primary osteoarthritis, unspecified site; M19.042 Primary osteoarthritis, left hand; M19.041 Primary osteoarthritis, right hand; G60.9 Hereditary and idiopathic neuropathy, unspecified; F17.200 Nicotine dependence, unspecified, uncomplicated; N39.3 Stress incontinence (female) (male); Z96.612 Presence of left artificial shoulder joint; Z96.611 Presence of right artificial shoulder joint; Z96.649 Presence of unspecified artificial hip joint; Z96.659 Presence of unspecified artificial knee joint; Z90.49 Acquired absence of other specified parts of digestive tract; Z79.51 Long term (current) use of inhaled steroids; Z79.899 Other long term (current) drug therapy
CPT/HCPCS: 36415; 71020; 71275; 80053; 80061; 82550; 82553; 83735; 83880; 84484; 85025; 85379; 85610; 85730; 87040; 93005; 93306; 94640; 94760; 99291

== ENCOUNTER → 2017-02-05 | Outpatient (CLI) | payer MEDICARE, BC ==
--- NOTE | 2017-02-05 13:17 | XR ---
EXAMINATION TYPE: XR chest 2V DATE OF EXAM: 02/05/2017 1:01 PM COMPARISON: 01/19/2017 TECHNIQUE: PA and lateral views submitted. HISTORY: Possible pneumonia FINDINGS: Correlate for underlying COPD. Severe compression deformity upper thoracic spine stable. Surgical cli ps in the abdomen with what appears to be suggestion of calcification. Postsurgical change involving the shoulders. Motion artifact limits the exam. Appears to be consolidation overlying the heart on th e lateral view which is stable. IMPRESSION: 1. Stable appearing right perihilar consolidation on the lateral view likely within the right middle lobe.
== END | disposition home or self-care (01) ==
LOC: RADXRMAIN 12:43
PROVIDERS: ATTEND Family Medicine
DX: J18.1 Lobar pneumonia, unspecified organism (principal)
CPT/HCPCS: 71020

== ENCOUNTER → 2017-02-19 | Outpatient (CLI) | payer MEDICARE, BC ==
--- NOTE | 2017-02-19 13:16 | XR ---
EXAMINATION TYPE: XR chest 2V DATE OF EXAM: 02/19/2017 COMPARISON: 02/05/2017 HISTORY: Shortness of breath TECHNIQUE: Frontal and lateral views of the chest are obtained. FINDINGS: Scattered senescent parenchymal changes noted. Hyperinflation compatible with COPD. No evidence for infiltrate. No evidence for atelectasis. Heart size is stable. Mediastinal structures are stable and grossly unremarkable. No evidence for hilar prominence. Degenerative changes dorsal spine. IMPRESSION: 1. No evidence for acute pulmonary disease.
== END | disposition home or self-care (01) ==
LOC: RADXRMAIN 13:00
PROVIDERS: ATTEND Family Medicine
DX: J44.1 Chronic obstructive pulmonary disease with (acute) exacerbation (principal)
CPT/HCPCS: 71020

== ENCOUNTER → 2017-09-23 | Outpatient (CLI) | payer MEDICARE, BC ==
--- NOTE | 2017-09-23 12:28 | XR ---
EXAMINATION TYPE: XR chest 2V DATE OF EXAM: 09/23/2017 COMPARISON: 02/19/2017 TECHNIQUE: PA and lateral views submitted. HISTORY: Shortness of breath FINDINGS: The lungs are clear and there is no pneumothorax, pleural effusion, or focal pneumonia. Postsurgica l change involving the shoulders. The heart is prominent there is atherosclerotic change aorta. Degen erative change of the spine with 1 severe complete compression deformity which appears chronic thorac ic spine. IMPRESSION: 1. No acute process.
== END ==
LOC: RADXRMAIN 11:58
PROVIDERS: ATTEND Internal Medicine Sleep Medicine
DX: R06.02 Shortness of breath (principal)
CPT/HCPCS: 71046

== ENCOUNTER → 2017-10-01 | Outpatient (CLI) | payer MEDICARE, BC ==
[2017-10-01 13:35] LABS: Blood Urea Nitrogen 16 mg/dL (7-17)
--- NOTE | 2017-10-01 16:15 | CT ---
EXAMINATION TYPE: CT abdomen pelvis w con DATE OF EXAM: 10/01/2017 COMPARISON: NONE INDICATION: Microscopic hematuria DLP: 679 mGycm, Automated exposure control for dose reduction was used. CONTRAST: 100 mL of Omnipaque 300. Study performed with Oral Contrast TECHNIQUE: Axial images were obtained from above the diaphragm to the pubic rami in the axial plane a t 5 mm thick sections. Reconstructed images are reviewed on the computer in the coronal plane. FINDINGS: Limited CT sections are obtained the lung bases. There is some mild increased opacity along the righ t heart border within the right middle lobe likely related to some atelectasis. Pneumonia could be co nsidered. This is only partially visualized. Consider follow-up.. CT ABDOMEN: Liver: A 1 cm hypodensity is volume averaged at the tip of the right lobe of liver could represent a cyst small hepatic cyst. This measures 30 Hounsfield units although volume averaging makes this value suspect. This suspected cyst could be confirmed with ultrasound. Spleen: Normal Pancreas: Atrophic Adrenal glands: The adrenal glands are normal. Gallbladder: Surgically absent Kidneys: No masses are evident. No hydronephrosis is present. No cysts are present. Delayed images were obtained through the kidneys, which remain unremarkable. No hydroureter is evident. No obvious renal stones are evident. Aorta: Vascular calcification is within the aorta. There is fusiform prominence with an AP diameter of 2.4 cm. The transverse dimension may be somewhat greater within this tortuous vessel. Inferior vena cava: Normal. CT PELVIS: There is limitation due to a right hip prosthesis. Loops of bowel within the abdomen and pelvis are normal. There are loops of bowel which are incom pletely distended or lack oral contrast limiting their evaluation. Contrast extends to small bowel lo ops into the proximal colon. Appendix: Normal as visualized. Urinary bladder: Normal as visualized. Limited due to right hip prosthesis. Genitourinary structures: Uterus is unremarkable. Adnexal regions are normal. Osseous structures: No suspicious lytic or sclerotic lesions. Scoliosis within the lumbar spine. Dege nerative disc changes are present. There is a compression deformity of L5. There may be some diffuse posterior displacement of the posterior wall. Facet hypertrophy is present causing some canal narrowi ng at L5-S1. IMPRESSIONS: 1. Atelectasis right middle lobe. Consider follow-up exam. 2. No suspicious renal anomaly to account for hematuria. 3. Tortuous ectatic abdominal aorta. 4. Suspected cyst at the inferior tip of the right lobe liver. Confirmation with ultrasound is recomm ended. This cannot be classified as a simple cyst based on the current CT.
== END | disposition home or self-care (01) ==
LOC: RADCTMAIN 12:31
PROVIDERS: ATTEND Urology
DX: I77.811 Abdominal aortic ectasia (principal); R31.1 Benign essential microscopic hematuria; Z88.8 Allergy status to other drugs, medicaments and biological substances
CPT/HCPCS: 82565; 84520; 74177; 36415; Q9967

== ENCOUNTER 2018-04-07 12:32 | Emergency (ER) | payer MEDICARE, BC ==
--- NOTE | 2018-04-07 13:27 | ED ---
Upper Extremity HPI - General Chief Complaint: Extremity Injury, Upper Stated Complaint: rt shoulder injury Time Seen by Provider: 04/07/18 12:51 Source: patient, RN notes reviewed Mode of arrival: wheelchair - History of Present Illness Initial Comments: This is an 82-year-old female who presents to the emergency department with chief complaint of right shoulder injury. Patient states that 10 days ago she had a fall outside. She states that she put her arms behind her and tried to lift herself up off the step. She states that at the same time she was twisting to grab for something. Since that time she has had right shoulder pain. She states that it feels internal. She states that the pain has actually gotten better. She states that she did not get evaluated initially because she had company over at her house. Patient denies any head, neck or back pain. She denies hitting her head. She states she landed on her butt. Denies recent fevers or chills, chest pain or shortness of breath, abdominal pain, nausea or vomiting, numbness or tingling, weakness. - Related Data Home Medications Medication Instructions Recorded Confirmed Ascorbic Acid [Vitamin C] 500 mg PO DAILY 01/18/17 01/18/17 Cholecalciferol [Vitamin D3] 1,000 unit PO DAILY 01/18/17 01/18/17 Fluticasone/Salmeterol [Advair 1 inhalation PO RT-BID 01/18/17 01/18/17 500-50 Diskus] Ipratropium-Albuterol Nebulize 3 ml INHALATION RT-QID 01/18/17 01/18/17 [Duoneb 0.5 mg-3 mg/3 ml Soln] Multivitamins, Thera [Multivitamin 1 tab PO DAILY 01/18/17 01/18/17 (formulary)] Simvastatin [Zocor] 20 mg PO HS 01/18/17 01/18/17 Previous Rx's Medication Instructions Recorded Aspirin 81 mg PO DAILY chew 01/20/17 Cefuroxime [Ceftin] 500 mg PO BID #6 tab 01/20/17 Metoprolol Tartrate [Lopressor] 12.5 mg PO BID #60 tab 01/20/17 predniSONE 10 mg PO DAILY #30 tab 01/20/17 Allergies Allergy/AdvReac Type Severity Reaction Status Date / Time Penicillins AdvReac yeast Verified 04/07/18 12:42 infection Review of Systems ROS Statement: Those systems with pertinent positive or pertinent negative responses have been documented in the HPI. ROS Other: All systems not noted in ROS Statement are negative. Past Medical History Past Medical History: COPD, Hyperlipidemia, Hypertension Additional Past Medical History / Comment(s): Patient says she has had trouble with her left leg swelling and redness near her ankles since her knee surgeries. History of Any Multi-Drug Resistant Organisms: None Reported Past Surgical History: Adenoidectomy, Cholecystectomy, Orthopedic Surgery, Tonsillectomy, Tubal Ligation Additional Past Surgical History / Comment(s): hip, knee, and bilateral shoulder surgery Additional Past Anesthesia/Blood Transfusion Reaction / Comment(s): Patient reports she has had a hard time waking up from anesthesia and feeling sick to her stomach after. Past Psychological History: No Psychological Hx Reported Smoking Status: Current every day smoker Past Alcohol Use History: Daily Past Drug Use History: None Reported - Past Family History Sister(s) Additional Family Medical History / Comment(s): Brain aneurysm Father Family Medical History: Cancer Additional Family Medical History / Comment(s): Colon CA General Exam - General Exam Comments Initial Comments: General: Awake and alert, well-developed; in no apparent distress. Lying comfortably on ED stretcher. HEENT: Head atraumatic, normocephalic. Pupils are equal, round and reactive to light. Extraocular movements intact. Oropharynx moist without erythema or exudate. Neck: Supple. Normal ROM. Cardiovascular: Regular rate and rhythm. No murmurs, rubs or gallops. Chest symmetrical. Respiratory: Lungs clear to auscultation bilaterally. No wheezes, rales or rhonchi. Normal respiratory effort with no use of accessory muscles. Musculoskeletal: Normal range of motion of the right shoulder, however pain is elicited with abduction greater than 90. Sensation is intact. No tenderness on palpation of the AC joint, clavicle, scapula or proximal humerus. No swelling, ecchymosis or erythema noted. Radial pulses are 2+ equal and palpable bilaterally. Ambulating with a walker. Skin: [place], warm and dry without rashes or lesions. Neurological: Alert and oriented x3. CN II-XII grossly intact. Speech is fluent and answers are appropriate. No focal neuro deficits. Psychiatric: Normal mood and affect. No overt signs of depression or anxiety noted. Course Vital Signs 04/07/18 12:38 Temperature 98.2 F Pulse Rate 84 Respiratory 18 Rate Blood Pressure 143/75 O2 Sat by Pulse 94 L Oximetry Medical Decision Making - Medical Decision Making This is an 82-year-old female who presents to the emergency department with chief complaint of right shoulder injury. Patient states 10 days ago she had a fall. She states that she landed on her butt but tried to lift herself up by putting her arms behind her and at the same time was stretching to reach something. She states that she has been experiencing pain in the right shoulder but this has been improving. She denies any other injuries or trauma. Denies head, neck or back pain. Patient states that she was not evaluated initially because she had company over. Patient has been ambulating normally with a walker. X-ray of the right shoulder reveal no acute abnormalities. Patient does have normal range of motion but does experience pain with abduction greater than 90. Patient will be discharged home at this time. Recommended following up with her primary care provider. She is in no acute distress and vital signs are stable. Patient is in agreement and voices understanding. All questions were answered. This case was discussed with attending physician, Dr. Blackwood who also evaluated the patient. - Radiology Data Radiology results: report reviewed, image reviewed Right shoulder x-ray findings: There is no acute fracture/dislocation evident in the right shoulder. Partial right arthroplasty is identified without gross evidence of dislocation. Moderate acromioclavicular arthropathy is seen. No focal soft tissue swelling. Visualized ribs are intact and unremarkable. Impression: There is no acute fracture or dislocation of the right shoulder. Disposition Clinical Impression: Strain of shoulder Disposition: HOME SELF-CARE Condition: Good Instructions: Shoulder Sprain (ED), Shoulder Pain (ED) Additional Instructions: Please follow up with primary care provider within 1-2 days. Return to emergency department if symptoms should worsen or any concerns arise. Is patient prescribed a controlled substance at d/c from ED?: No Referrals: Bhupendra Weiner DO [Primary Care Provider] - 1-2 days Time of Disposition: 13:57
--- NOTE | 2018-04-07 13:49 | XR ---
EXAMINATION TYPE: XR shoulder complete RT DATE OF EXAM: 04/07/2018 CLINICAL HISTORY: Right shoulder pain after fall TECHNIQUE: Three views of the right shoulder are obtained. COMPARISON: None. FINDINGS: There is no acute fracture/dislocation evident in the right shoulder. Partial right arthro plasty is identified without gross evidence of dislocation. Moderate acromio clavicular arthropathy i s seen. No focal soft tissue swelling. The visualized ribs are intact and unremarkable. IMPRESSION: There is no acute fracture or dislocation in the right shoulder.
[2018-04-07 14:14] VITALS: BP 133/64; PULSE 77; RESP 15; TEMP 97.6
== END 2018-04-07 14:18 | disposition home or self-care (01) ==
LOC: EC 12:32
DX: S46.911A Strain of unspecified muscle, fascia and tendon at shoulder and upper arm level, right arm, initial encounter (principal); J44.9 Chronic obstructive pulmonary disease, unspecified; E78.5 Hyperlipidemia, unspecified; F17.200 Nicotine dependence, unspecified, uncomplicated; Z98.890 Other specified postprocedural states; Z79.51 Long term (current) use of inhaled steroids; Z79.899 Other long term (current) drug therapy; Z88.0 Allergy status to penicillin; W18.39XA Other fall on same level, initial encounter
CPT/HCPCS: 99283

== ENCOUNTER → 2018-05-29 | Outpatient (CLI) | payer MEDICARE, BC ==
--- NOTE | 2018-05-29 15:48 | US ---
EXAMINATION TYPE: US venous doppler duplex LE DATE OF EXAM: 05/29/2018 1:30 PM COMPARISON: NONE CLINICAL HISTORY: R60.0 EDEMA. Baby aspirin. No hx of DVT. No pain. No redness. Swelling bilatera lly. SIDE PERFORMED: Bilateral TECHNIQUE: The lower extremity deep venous system is examined utilizing real time linear array sonog otis with graded compression, doppler sonography and color-flow sonography. VESSELS IMAGED: External Iliac Vein (EIV) Common Femoral Vein Deep Femoral Vein Greater Saphenous Vein * Femoral Vein Popliteal Vein Small Saphenous Vein * Proximal Calf Veins (* superficial vessels) Right Leg: Negative for DVT Left Leg: Negative for DVT IMPRESSION: 1. Lower extremity ultrasound negative for deep venous thrombosis.
== END ==
LOC: RADUSWWP 13:00
PROVIDERS: ATTEND Family Medicine
DX: R60.0 Localized edema (principal)
CPT/HCPCS: 93970

== ENCOUNTER → 2018-07-29 | Outpatient (CLI) | payer MEDICARE, BC ==
--- NOTE | 2018-07-30 07:12 | NM ---
EXAMINATION TYPE: NM parathyroid w/spect DATE OF EXAM: 07/29/2018 COMPARISON: NONE HISTORY: Hyperparathyroidism E21.3 TECHNIQUE: Following administration of 24.5 mCi Tc99m Sestamibi. Anterior projection images of the neck and ches t were obtained 10 minutes and 3 hours post injection. SPECT images of the neck and chest were obtai pacheco and reconstructed in three axes. FINDINGS: Thyroid tracer washout: Delayed images demonstrate near-complete tracer washout from the thyroid. Parathyroid uptake: None. The two-hour delayed images do not demonstrate any focal abnormal persisten t uptake in the region of the parathyroid glands to suggest parathyroid adenoma. Normal uptake: There is physiological tracer uptake in the myocardium, liver, salivary glands, and th yroid gland. IMPRESSION: Normal parathyroid imaging study. No evidence for mediastinal uptake to suggest mediastinal parathyro id adenoma
== END ==
LOC: RADNMMAIN 11:17
PROVIDERS: ATTEND Family Medicine
DX: E21.3 Hyperparathyroidism, unspecified (principal)
CPT/HCPCS: 78071; A9500

== ENCOUNTER 2022-07-06 09:20 | Emergency (ER) | payer MEDICARE, BC ==
[2022-07-06] MEDS ORDERED: SODIUM CHLORIDE 0.9% 500 ML 500 ML IV STA (09:41)
[2022-07-06] MEDS ORDERED: MECLIZINE 25 MG TAB PO STA (09:42)
[2022-07-06 09:47] LABS: Basophils % (A) 0 %; Eosinophils # (A) 0.1 k/uL (0-0.7); Eosinophils % (A) 1 %; HCT 40.6 % (34.0-46.0); HGB 13.4 gm/dL (11.4-16.0); Lymphocytes # (A) 1.2 k/uL (1.0-4.8); Lymphocytes % (A) 16 %; MCH 29.6 pg (25.0-35.0); MCHC 32.9 g/dL (31.0-37.0); MCV 89.8 fL (80.0-100.0); Mean Platelet Volume 7.7; Monocytes # (A) 0.4 k/uL (0-1.0); Monocytes % (A) 5 %; Neutrophils # (A) 5.8 k/uL (1.3-7.7); Neutrophils % (A) 77 %; Platelet Count 187 k/uL (150-450); RBC 4.51 m/uL (3.80-5.40); RDW 13.2 % (11.5-15.5); WBC 7.5 k/uL (3.8-10.6)
--- NOTE | 2022-07-06 09:50 | ED ---
General Adult HPI - General Chief complaint: Weakness Stated complaint: weakness Time Seen by Provider: 07/06/22 09:30 Source: patient, RN notes reviewed, old records reviewed Mode of arrival: EMS Limitations: no limitations - History of Present Illness Initial comments: This is an 86-year-old female presents emergency Department complaining of dizziness. Patient states when she got this when the whole room was moving and when she sits still she thought she would be nauseated. Patient states she's never had before. Patient states sitting still makes it better movement makes it worse per patient states she's had no chest pain no difficulty breathing she denies any fever chills or cough. Patient denies headache patient denies numbness or weakness. Patient denies any abdominal pain. Patient denies any recent fever chills or cough. - Related Data Home Medications Medication Instructions Recorded Confirmed Ascorbic Acid [Vitamin C] 500 mg PO DAILY 01/18/17 04/07/18 Cholecalciferol [Vitamin D3 (25 1,000 unit PO DAILY 01/18/17 04/07/18 Mcg = 1000 Iu)] Fluticasone Propion/Salmeterol 1 inhalation PO RT-BID 01/18/17 04/07/18 [Advair 500-50 Diskus] Ipratropium-Albuterol Nebulize 3 ml INHALATION RT-QID 01/18/17 04/07/18 [Duoneb 0.5 mg-3 mg/3 ml Soln] Multivitamins, Thera [Multivitamin 1 tab PO DAILY 01/18/17 04/07/18 (formulary)] Simvastatin [Zocor] 20 mg PO HS 01/18/17 04/07/18 Metoprolol Tartrate [Lopressor] 25 mg PO BID 04/07/18 04/07/18 raNITIdine HCL [Zantac] 150 mg PO DAILY 04/07/18 04/07/18 Previous Rx's Medication Instructions Recorded Aspirin 81 mg PO DAILY chew 01/20/17 Meclizine [Antivert] 25 mg PO TID #20 tab 07/06/22 Allergies Allergy/AdvReac Type Severity Reaction Status Date / Time Penicillins AdvReac yeast Verified 07/06/22 09:27 infection Review of Systems ROS Statement: Those systems with pertinent positive or pertinent negative responses have been documented in the HPI. ROS Other: All systems not noted in ROS Statement are negative. Past Medical History Past Medical History: COPD, Hyperlipidemia, Hypertension Additional Past Medical History / Comment(s): Patient says she has had trouble with her left leg swelling and redness near her ankles since her knee surgeries. History of Any Multi-Drug Resistant Organisms: None Reported Past Surgical History: Adenoidectomy, Cholecystectomy, Orthopedic Surgery, Tonsillectomy, Tubal Ligation Additional Past Surgical History / Comment(s): hip, knee, and bilateral shoulder surgery Additional Past Anesthesia/Blood Transfusion Reaction / Comment(s): Patient reports she has had a hard time waking up from anesthesia and feeling sick to her stomach after. Past Psychological History: No Psychological Hx Reported Smoking Status: Current every day smoker Past Alcohol Use History: Daily Past Drug Use History: None Reported - Past Family History Sister(s) Additional Family Medical History / Comment(s): Brain aneurysm Father Family Medical History: Cancer Additional Family Medical History / Comment(s): Colon CA General Exam - General Exam Comments Initial Comments: GENERAL: Patient is well-developed and well-nourished. Patient is nontoxic and well- hydrated and is in mild distress. ENT: Neck is soft and supple. No significant lymphadenopathy is noted. Oropharynx is clear. Moist mucous membranes. Neck has full range of motion without eliciting any pain. EYES: The sclera were anicteric and conjunctiva were pink and moist. Extraocular movements were intact and pupils were equal round and reactive to light. Eyelids were unremarkable. PULMONARY: Unlabored respirations. Good breath sounds bilaterally. No audible rales rhonchi or wheezing was noted. CARDIOVASCULAR: There is a regular rate and rhythm without any murmurs gallops or rubs. ABDOMEN: Soft and nontender with normal bowel sounds. SKIN: Skin is clear with no lesions or rashes and otherwise unremarkable. NEUROLOGIC: Patient is alert and oriented x3. Cranial nerves II through XII are grossly intact. Motor and sensory are also intact. Normal speech, volume and content. Symmetrical smile. Finger to nose testing is normal bilaterally MUSCULOSKELETAL: Normal extremities with adequate strength and full range of motion. LYMPHATICS: No significant lymphadenopathy is noted PSYCHIATRIC: Normal psychiatric evaluation. Limitations: no limitations Course Vital Signs 07/06/22 07/06/22 07/06/22 09:21 09:31 10:23 Pulse Rate 83 73 Respiratory 18 20 20 Rate Blood Pressure 187/102 164/103 O2 Sat by Pulse 91 L 95 Oximetry Medical Decision Making - Medical Decision Making EKG shows sinus rhythm at 76 bpm TX interval is 202 QRS is 84 QT interval 360 QTC is 391. Patient's EKG shows no ST segment elevation or depression. CT of the brain showed no acute abnormality. Patient received Antivert in the emergency department. Patient got up and ambulated and was no longer dizzy. Patient was comfortable going home family was comfortable with the patient going home - Lab Data Result diagrams: 07/06/22 09:33 07/06/22 09:43 Lab Results 07/06/22 07/06/22 07/06/22 Range/Units 09:33 09:43 09:43 WBC 7.5 (3.8-10.6) k/uL RBC 4.51 (3.80-5.40) m/uL Hgb 13.4 (11.4-16.0) gm/dL Hct 40.6 (34.0-46.0) % MCV 89.8 (80.0-100.0) fL MCH 29.6 (25.0-35.0) pg MCHC 32.9 (31.0-37.0) g/dL RDW 13.2 (11.5-15.5) % Plt Count 187 (150-450) k/uL MPV 7.7 Neutrophils % 77 % Lymphocytes % 16 % Monocytes % 5 % Eosinophils % 1 % Basophils % 0 % Neutrophils # 5.8 (1.3-7.7) k/uL Lymphocytes # 1.2 (1.0-4.8) k/uL Monocytes # 0.4 (0-1.0) k/uL Eosinophils # 0.1 (0-0.7) k/uL Basophils # 0.0 (0-0.2) k/uL Sodium 134 L (137-145) mmol/L Potassium 4.3 (3.5-5.1) mmol/L Chloride 97 L (98-107) mmol/L Carbon Dioxide 29 (22-30) mmol/L Anion Gap 8 mmol/L BUN 12 (7-17) mg/dL Creatinine 0.46 L (0.52-1.04) mg/dL Est GFR (CKD-EPI)AfAm >90 (>60 ml/min/1.73 sqM) Est GFR (CKD-EPI)NonAf 89 (>60 ml/min/1.73 sqM) Glucose 111 H (74-99) mg/dL Calcium 9.8 (8.4-10.2) mg/dL Magnesium 2.0 (1.6-2.3) mg/dL Total Bilirubin 0.8 (0.2-1.3) mg/dL AST 23 (14-36) U/L ALT 13 (4-34) U/L Alkaline Phosphatase 102 (38-126) U/L Troponin I <0.012 (0.000-0.034) ng/mL Total Protein 7.0 (6.3-8.2) g/dL Albumin 4.4 (3.5-5.0) g/dL Urine Color Urine Appearance (Clear) Urine pH (5.0-8.0) Ur Specific Brandon (1.001-1.035) Urine Protein (Negative) Urine Glucose (UA) (Negative) Urine Ketones (Negative) Urine Blood (Negative) Urine Nitrite (Negative) Urine Bilirubin (Negative) Urine Urobilinogen (<2.0) mg/dL Ur Leukocyte Esterase (Negative) Urine RBC (0-5) /hpf Urine WBC (0-5) /hpf Ur Squamous Epith Cells (0-4) /hpf Urine Mucus (None) /hpf 07/06/22 Range/Units 10:25 WBC (3.8-10.6) k/uL RBC (3.80-5.40) m/uL Hgb (11.4-16.0) gm/dL Hct (34.0-46.0) % MCV (80.0-100.0) fL MCH (25.0-35.0) pg MCHC (31.0-37.0) g/dL RDW (11.5-15.5) % Plt Count (150-450) k/uL MPV Neutrophils % % Lymphocytes % % Monocytes % % Eosinophils % % Basophils % % Neutrophils # (1.3-7.7) k/uL Lymphocytes # (1.0-4.8) k/uL Monocytes # (0-1.0) k/uL Eosinophils # (0-0.7) k/uL Basophils # (0-0.2) k/uL Sodium (137-145) mmol/L Potassium (3.5-5.1) mmol/L Chloride (98-107) mmol/L Carbon Dioxide (22-30) mmol/L Anion Gap mmol/L BUN (7-17) mg/dL Creatinine (0.52-1.04) mg/dL Est GFR (CKD-EPI)AfAm (>60 ml/min/1.73 sqM) Est GFR (CKD-EPI)NonAf (>60 ml/min/1.73 sqM) Glucose (74-99) mg/dL Calcium (8.4-10.2) mg/dL Magnesium (1.6-2.3) mg/dL Total Bilirubin (0.2-1.3) mg/dL AST (14-36) U/L ALT (4-34) U/L Alkaline Phosphatase (38-126) U/L Troponin I (0.000-0.034) ng/mL Total Protein (6.3-8.2) g/dL Albumin (3.5-5.0) g/dL Urine Color Colorless Urine Appearance Cloudy H (Clear) Urine pH 8.0 (5.0-8.0) Ur Specific Brandon 1.008 (1.001-1.035) Urine Protein Negative (Negative) Urine Glucose (UA) Negative (Negative) Urine Ketones Negative (Negative) Urine Blood Negative (Negative) Urine Nitrite Negative (Negative) Urine Bilirubin Negative (Negative) Urine Urobilinogen <2.0 (<2.0) mg/dL Ur Leukocyte Esterase Negative (Negative) Urine RBC 3 (0-5) /hpf Urine WBC 1 (0-5) /hpf Ur Squamous Epith Cells 1 (0-4) /hpf Urine Mucus Rare H (None) /hpf Disposition Clinical Impression: Vertigo Disposition: HOME SELF-CARE Condition: Good Instructions (If sedation given, give patient instructions): Vertigo (ED) Prescriptions: Meclizine [Antivert] 25 mg PO TID #20 tab Is patient prescribed a controlled substance at d/c from ED?: No Referrals: Bhupendra Weiner DO [Primary Care Provider] - 1-2 days Time of Disposition: 11:07
[2022-07-06 09:58] LABS: ALT 13 U/L (4-34); AST 23 U/L (14-36); African American GFR (CKD) >90 (>60 ml/min/1.73 sqM); Albumin 4.4 g/dL (3.5-5.0); Alkaline Phosphatase 102 U/L (38-126); Anion Gap 8 mmol/L; Blood Urea Nitrogen 12 mg/dL (7-17); Calcium 9.8 mg/dL (8.4-10.2); Carbon Dioxide 29 mmol/L (22-30); Chloride 97 mmol/L (98-107); Glucose 111 mg/dL (74-99); Non-African American GFR(CKD) 89 (>60 ml/min/1.73 sqM); Potassium 4.3 mmol/L (3.5-5.1); Sodium 134 mmol/L (137-145); Total Bilirubin 0.8 mg/dL (0.2-1.3)
[2022-07-06 10:45] LABS: Appearance,Urine Cloudy (Clear); Bilirubin,Urine Negative (Negative); Blood,Urine Negative (Negative); Color,Urine Colorless; Glucose,Urine (UA) Negative (Negative); Ketones,Urine Negative (Negative); Leukocyte Esterase,Urine Negative (Negative); Mucus,Urine Rare /hpf; Nitrite,Urine Negative (Negative); Protein,Urine Negative (Negative); RBC,Urine 3 /hpf (0-5); Specific Gravity,Urine 1.008 (1.001-1.035); Squamous Epithelial Cell,Urine 1 /hpf (0-4); Urobilinogen,Urine <2.0 mg/dL (<2.0); WBC,Urine 1 /hpf (0-5)
--- NOTE | 2022-07-06 10:55 | XR ---
EXAMINATION TYPE: XR chest 2V DATE OF EXAM: 07/06/2022 COMPARISON: Chest x-ray September 23, 2017 HISTORY: Chest pain. TECHNIQUE: Frontal and lateral views of the chest are obtained. FINDINGS: There is background mild chronic emphysematous change without suspicious focal air space o pacity, pleural effusion, or pneumothorax seen. Cardiomegaly redemonstrated. Surgical change bilatera l humeral heads again seen. Osseous structures are demineralized. IMPRESSION: Cardiomegaly and chronic changes without acute pulmonary process. No significant change from prior.
[2022-07-06] MEDS ORDERED: ALBUTEROL NEBULIZED 2.5 MG/3 ML INHALATION STA (11:57)
[2022-07-06] MEDS ORDERED: IPRATROPIUM 0.5 MG/2.5 ML NEBU INHALATION STA (11:58)
[2022-07-06 12:18] VITALS: RESP 18
[2022-07-06 12:58] VITALS: BP 138/85; PULSE 82; TEMP 97.8
== END 2022-07-06 12:57 | disposition home or self-care (01) ==
LOC: EC 09:20
DX: R42 Dizziness and giddiness (principal); J44.9 Chronic obstructive pulmonary disease, unspecified; E78.5 Hyperlipidemia, unspecified; I10 Essential (primary) hypertension; Z88.0 Allergy status to penicillin; Z79.82 Long term (current) use of aspirin; Z79.899 Other long term (current) drug therapy
CPT/HCPCS: 36415; 71046; 80053; 81001; 83735; 84484; 85025; 93005; 94640; 99285